=== PATIENT | male | born 1990 ===

== ENCOUNTER 2018-02-16 09:29 | Observation (INO) | payer OTHER ==
[2018-02-16 09:34] VITALS: BMI 29.8
--- NOTE | 2018-02-16 09:56 | C.PDOC ---
History Of Present Illness 27-year-old male presents to the ED for evaluation of left upper and lower sided abdominal pain which began at 1100 yesterday. Patient was evaluated by his PMD, and was prescribed ranitidine and omeprazole. Patient states he has been vomiting and has not been keeping anything down. He denies fever, chills, diarrhea. Time Seen by Provider: 02/16/18 09:53 Chief Complaint (Nursing): Abdominal Pain History Per: Patient History/Exam Limitations: no limitations Onset/Duration Of Symptoms: Hrs Current Symptoms Are (Timing): Still Present Location Of Pain/Discomfort: Other (left upper and lower abdominal pain ) Radiation Of Pain To:: None Quality Of Discomfort: "Pain" Associated Symptoms: Nausea, Vomiting. denies: Fever, Chills, Diarrhea Additional History Per: Patient Past Medical History Reviewed: Historical Data, Nursing Documentation, Vital Signs Vital Signs: Last Vital Signs Temp 98.5 F 02/18/18 08:00 Pulse 60 02/18/18 08:00 Resp 20 02/18/18 08:00 BP 117/77 02/18/18 08:00 Pulse Ox 96 02/18/18 09:28 - Medical History PMH: No Chronic Diseases Surgical History: No Surg Hx Family History: States: Unknown Family Hx - Social History Hx Alcohol Use: Yes Hx Substance Use: No Review Of Systems Constitutional: Negative for: Fever, Chills Cardiovascular: Negative for: Chest Pain Respiratory: Negative for: Cough, Shortness of Breath Gastrointestinal: Positive for: Nausea, Vomiting, Abdominal Pain. Negative for : Diarrhea Genitourinary: Negative for: Dysuria Skin: Negative for: Rash Neurological: Negative for: Weakness, Numbness Physical Exam - Physical Exam Appears: Non-toxic, No Acute Distress Skin: Normal Color, Warm, Dry Head: Atraumatic, Normacephalic Eye(s): bilateral: Normal Inspection Oral Mucosa: Moist Neck: Supple Chest: Symmetrical, No Deformity, No Tenderness Cardiovascular: Rhythm Regular, No Murmur Respiratory: Normal Breath Sounds, No Rales, No Rhonchi, No Wheezing Gastrointestinal/Abdominal: Soft, Tenderness (epigastric, left upper and left lower quadrants ), No Guarding, No Rebound, Other (vertical scar to abdomen ( patient states he had a surgery for "swollen abdomen" when he was 45-days old.) Extremity: Normal ROM, Capillary Refill (less than 2 seconds ) Neurological/Psych: Oriented x3, Normal Speech, Normal Cognition ED Course And Treatment - Laboratory Results Result Diagrams: 02/18/18 06:53 02/18/18 06:53 O2 Sat by Pulse Oximetry: 96 (on RA) Pulse Ox Interpretation: Normal Medical Decision Making Medical Decision Making: Progress: Bloodwork, urinalysis, CT A/P ordered and reviewed. Cipro IVP, Flagyl IVP, Pepcid IVP, Toradol IVP given. pt with elevated wbc and enteritis on ct scan; discussed with Dr Narayan, will admit to his service. Disposition Discussed With : Aiden Narayan Doctor Will See Patient In The: Hospital - Disposition Disposition: HOSPITALIZED Disposition Time: 16:30 Condition: STABLE - Clinical Impression Clinical Impression: Enteritis - PA / SUBSTANCE ABUSE SPECIALIST / Resident Statement MD/DO has reviewed & agrees with the documentation as recorded. - Scribe Statement The provider has reviewed the documentation as recorded by the Scribe (Shana Vega) All medical record entries made by the Scribe were at my direction and personally dictated by me. I have reviewed the chart and agree that the record accurately reflects my personal performance of the history, physical exam, medical decision making, and the department course for this patient. I have also personally directed, reviewed, and agree with the discharge instructions and disposition.
[2018-02-16] MEDS ORDERED: Iohexol 240 (50 ml) PO STA (12:38)
[2018-02-16] MEDS ORDERED: Iohexol 240 (50 ml) ONE (12:53)
[2018-02-16 13:00] LABS: BASO % 0.2 % (0.0-2.0); EOS % 0.2 % (0.0-4.0); HEMOGLOBIN 16.4 g/dL (12.0-18.0); LYMPH # 1.5 K/uL (1.0-4.3); LYMPH % 7.6 % (20.0-40.0); MEAN CELL VOLUME 87.7 fL (80.0-94.0); MEAN CORPUSCULAR HEMOGLOBIN 29.8 pg (27.0-31.0); MEAN PLATELET VOLUME 8.4 fL (7.2-11.7); MONO # 0.9 K/uL (0.0-0.8); MONO % 4.8 % (0.0-10.0); NEUT # 17.3 K/uL (1.8-7.0); NEUT % 87.2 % (50.0-75.0); PLATELET COUNT 263 K/uL (130-400); RED CELL DISTRIBUTION WIDTH 14.2 % (11.5-14.5)
[2018-02-16 13:02] LABS: WHITE BLOOD COUNT 19.8 K/uL (4.8-10.8)
[2018-02-16 13:05] LABS: URINE BILIRUBIN NEGATIVE (NEGATIVE); URINE BLOOD NEGATIVE (NEGATIVE); URINE CLARITY Hazy (Clear); URINE COLOR Amber (YELLOW); URINE GLUCOSE (UA) NORMAL (Normal); URINE LEUKOCYTE ESTERASE NEG Leu/uL (Negative); URINE PROTEIN 1+ mg/dL (NEGATIVE); URINE UROBILINOGEN NORMAL mg/dL (0.2-1.0)
[2018-02-16 13:12] LABS: ALB/GLOB RATIO 1.6 (1.0-2.1); ALBUMIN 4.5 g/dL (3.5-5.0); ALT/SGPT 38 U/L (21-72); AST/SGOT 28 U/L (17-59); BLOOD UREA NITROGEN 21 mg/dL (9-20); CALCIUM 9.6 mg/dl (8.6-10.4); GFR NON-AFRICAN AMERICAN > 60; LIPASE 94 U/L (23-300)
[2018-02-16 13:43] LABS: LYMPHOCYTE 10 % (20-40); MONOCYTE 3 % (0-10); NEUTROPHIL 87 % (50-75); PLATELET ESTIMATE NORMAL (NORMAL); TOTAL CELLS COUNTED 100
[2018-02-16] MEDS ORDERED: Iodixanol 320 MG/ML 100 ML BOTTLE IV ONE (13:54)
--- NOTE | 2018-02-16 15:49 | CT ---
PROCEDURE: CT Abdomen and Pelvis with oral and IV contrast. HISTORY: abd pain COMPARISON: None available TECHNIQUE: Contiguous axial images of the abdomen and pelvis. Oral and IV contrast was administered. Coronal and Sagittal reformats generated and reviewed. Contrast dose: 100 mL Visipaque IV Radiation dose: Total exam DLP = 715.20 mGy-cm. This CT exam was performed using one or more of the following dose reduction techniques: Automated exposure control, adjustment of the mA and/or kV according to patient size, and/or use of iterative reconstruction technique. FINDINGS: LOWER THORAX: No visible consolidation, pleural effusion, or pneumothorax. LIVER: Unremarkable. GALLBLADDER AND BILE DUCTS: Unremarkable. PANCREAS: Unremarkable. SPLEEN: Unremarkable. ADRENALS: Unremarkable. KIDNEYS AND URETERS: The kidneys enhance symmetrically. No hydronephrosis or obstructing renal calculus. BLADDER: The urinary bladder appears unremarkable. REPRODUCTIVE: Unremarkable. APPENDIX: No secondary signs of acute appendicitis. BOWEL: The stomach is nondistended. The bowel loops appear within normal limits of caliber without evidence of intestinal obstruction.Marked small bowel wall thickening within the left abdomen concerning for enteritis. Rounded luminal material noted within a small bowel loop with hyperdense rim, possibly contrast surrounding debris, however finding of uncertain significance/etiology (coronal image 48, axial image 96). PERITONEUM: No significant free fluid. No definite free air. LYMPH NODES: No bulky lymphadenopathy identified. VASCULATURE: No aortic aneurysm. BONES: No acute osseous abnormality is detected. OTHER FINDINGS: None. IMPRESSION: Marked small bowel wall thickening within the left abdomen concerning for enteritis. Correlate clinically. Rounded luminal material noted within a small bowel loop with hyperdense rim, possibly contrast surrounding debris, however finding of uncertain significance/etiology.
[2018-02-16] MEDS ORDERED: Piperacillin/Tazobact 3.375 GM in Sodium Chloride 100 ML IVPB STA (16:05)
[2018-02-16] MEDS ORDERED: Piperacillin/Tazobact 3.375 gm 100 ML IVPB ONE (16:18)
[2018-02-16] MEDS ORDERED: Ciprofloxacin 400mg/200ml D5W 400 MG/200 ML BAG IVPB STA (16:22)
[2018-02-16] MEDS ORDERED: metroNIDAZOLE IV 500 mg/100 ml 500 MG/100 ML BAG IVPB STA (16:25)
[2018-02-16] MEDS ORDERED: Glucagon Recombinant 1 mg Inj IM PRN (16:41)
[2018-02-16] MEDS ORDERED: Dextrose 50% SYRINGE Inj (50 ml) IV PRN (16:41)
[2018-02-16] MEDS ORDERED: metroNIDAZOLE IV 500 mg/100 ml 500 MG/100 ML BAG ONE (16:43)
--- NOTE | 2018-02-16 16:43 | CP.PCM.HP ---
<BhaveshLive finney - Last Filed: 02/16/18 17:19> History of Present Illness - History of Present Illness History of Present Illness: PGY-[address] and [address] Narayan Patient is a 27 year old male with a PMH of an unknown abdominal surgery at 1 month of age who presents to the ED reporting that yesterday at 11 am he had onset of pressure like left lower abdominal pain. After eating rice and pork for lunch his pain markedly worsened; he rates it 10/10 in intensity. Around 1 am he had onset of non-bloody non-bilious yellow vomiting that persisted x 5 episodes. Throughout the day today his abdominal pain did not remit promiting his visit. He notes that when he pushes on his left lower abdomen the pain is sharp and radiates to his epigastrium and down to his umbilicus. He has not been able to tolerate fluids or food since his lunch yesterday. He was seen by his PMD in the office last night for this pain and started on Omeprazole and an unknown medication without relief. He states that since being in the ED and receiving medications, his pain has subsided to 6/10 and he is currently not nauseas. He denies fevers, chills, chest pain, palpitations, diarrhea, constipation, blood in his urine, blood in his stool or changes in his vision. He notes he was dizzy after the multiple episodes of vomiting but it has currently resolved. PMD: Dr. Richmond Vieira Medications: None Allergies: NKDA PMHx: None Surgeries: History of unknown abdominal surgery at age 1 month Social hx: Denies smoking, drug use, drinks small amount socially Family history: No known family history Present on Admission - Present on Admission Any Indicators Present on Admission: No Review of Systems - Constitutional Constitutional: Fatigue. absent: Chills, Fever, Increased Appetite, Weight Loss - EENT Eyes: absent: Blurred Vision, Change in Vision Ears: absent: Abnormal Hearing, Disequilibrium Nose/Mouth/Throat: absent: Nasal Congestion, Nasal Discharge, Sinus Pain - Cardiovascular Cardiovascular: absent: Chest Pain, Diaphoresis, Dyspnea, Lightheadedness, Pedal Edema - Respiratory Respiratory: absent: Cough, Dyspnea, Wheezing - Gastrointestinal Gastrointestinal: Abdominal Pain (+LLQ pain), Nausea, Vomiting (+NBNB vomiting x5 bouts). absent: Diarrhea, Dysphagia, Fecal Incontinence, Loose Stools - Genitourinary Genitourinary: absent: Change in Urinary Stream, Hematuria, Pyuria - Musculoskeletal Musculoskeletal: absent: Back Pain, Joint Swelling, Neck Pain - Neurological Neurological: absent: Confusion, Dizziness, Numbness, Headaches, Paresthesias, Syncope, Weakness - Psychiatric Psychiatric: absent: Anxiety, Depression Past Patient History - Past Social History Smoking Status: Current Some Days Smoker - PSYCHIATRIC Hx Substance Use: No - SURGICAL HISTORY Hx Surgeries: Yes Other/Comment: "SURGERY IN MY STOMACH WHEN I WAS 45 DAYS OLD" PER PATIENT - ANESTHESIA Hx Anesthesia: Yes Meds Allergies/Adverse Reactions: Allergies Allergy/AdvReac Type Severity Reaction Status Date / Time No Known Allergies Allergy Verified 02/16/18 09:33 Physical Exam - Constitutional Appears: Non-toxic, No Acute Distress - Head Exam Head Exam: ATRAUMATIC, NORMAL INSPECTION - Eye Exam Eye Exam: EOMI, Normal appearance Pupil Exam: NORMAL ACCOMODATION - ENT Exam ENT Exam: Mucous Membranes Moist, Normal Exam - Respiratory Exam Respiratory Exam: Clear to Auscultation Bilateral, NORMAL BREATHING PATTERN. absent: Rales, Rhonchi, Wheezes - Cardiovascular Exam Cardiovascular Exam: REGULAR RHYTHM, +S1, +S2 - GI/Abdominal Exam GI & Abdominal Exam: Normal Bowel Sounds, Soft, Tenderness (+LLQ tender to mild palpation, no rebound, no gaurding). absent: Distended, Firm, Guarding, Hyperactive Bowel Sounds, Hypoactive Bowel Sounds, Organomegaly, Rebound, Rigid - Neurological Exam Neurological exam: Alert, CN II-XII Intact, Normal Gait, Oriented x3, Reflexes Normal - Psychiatric Exam Psychiatric exam: Normal Affect, Normal Mood - Skin Skin Exam: Dry, Intact, Normal Color, Warm Results - Vital Signs Recent Vital Signs: Last Vital Signs Temp 98.2 F 02/16/18 15:09 Pulse 72 02/16/18 15:09 Resp 18 02/16/18 15:09 BP 112/75 02/16/18 15:09 Pulse Ox 96 02/16/18 16:28 - Labs Result Diagrams: 02/16/18 12:54 02/16/18 12:54 Labs: Laboratory Results - last 24 hr 02/16/18 02/16/18 02/16/18 12:54 12:54 12:54 WBC 19.8 H RBC 5.50 Hgb 16.4 Hct 48.2 MCV 87.7 MCH 29.8 MCHC 34.0 RDW 14.2 Plt Count 263 MPV 8.4 Neut % (Auto) 87.2 H Lymph % (Auto) 7.6 L Garrett % (Auto) 4.8 Eos % (Auto) 0.2 Baso % (Auto) 0.2 Neut # (Auto) 17.3 H Lymph # (Auto) 1.5 Garrett # (Auto) 0.9 H Eos # (Auto) 0.0 Baso # (Auto) 0.0 Neutrophils % (Manual) 87 H Lymphocytes % (Manual) 10 L Monocytes % (Manual) 3 Platelet Estimate Normal Sodium 141 Potassium 4.1 Chloride 103 Carbon Dioxide 28 Anion Gap 14 BUN 21 H Creatinine 0.9 Est GFR ( Amer) > 60 Est GFR (Non-Af Amer) > 60 Random Glucose 117 H Calcium 9.6 Total Bilirubin 1.5 H AST 28 ALT 38 Alkaline Phosphatase 80 Total Protein 7.3 Albumin 4.5 Globulin 2.9 Albumin/Globulin Ratio 1.6 Lipase 94 Urine Color Noelle Urine Clarity Hazy Urine pH 6.0 Ur Specific [place] 1.023 Urine Protein 1+ H Urine Glucose (UA) Normal Urine Ketones Negative Urine Blood Negative Urine Nitrate Negative Urine Bilirubin Negative Urine Urobilinogen Normal Ur Leukocyte Esterase Neg Urine WBC (Auto) 1 Urine RBC (Auto) 1 Assessment & Plan - Assessment and Plan (Free Text) Assessment: 1) Left lower quadrant pain with leukocytosis: * Imaging: * CT abd/pelvis: "Marked small bowel wall thickening within the left abdomen concerning for enteritis, Correlate clinically. Rounded luminal material noted within a small bowel loop with hyperdense rim, possibly contrast surrounding debris, however finding of uncertain significance/etiology." * Leukocytes- 19.8 * Lipase 94 (WNL) * Daily CBC w/ dif, CMP, lipase, mag, phos * NPO except meds for bowel rest * D5 Dextrose @150cc/hr * Continue ED Abx: * Cipro 400 mg IVPD q12 * Flagyl 500 mg IVPB q8 * PRN Meds * Morphine 2mg IVP q3 PRN for pain * Tylenol 650 mg PO prn for fever 2) Prophylaxis * DVT: SCDs Assessment/Plan discussed with Dr. Helene Flores, PGY-1 <Aiden Narayan H - Last Filed: 02/16/18 18:28> Results - Vital Signs Recent Vital Signs: Last Vital Signs Temp 99.9 F H 02/16/18 18:13 Pulse 62 02/16/18 18:13 Resp 16 02/16/18 18:13 BP 100/63 02/16/18 18:13 Pulse Ox 98 02/16/18 18:13 - Labs Result Diagrams: 02/16/18 12:54 02/16/18 12:54 Labs: Laboratory Results - last 24 hr 02/16/18 02/16/18 02/16/18 12:54 12:54 12:54 WBC 19.8 H RBC 5.50 Hgb 16.4 Hct 48.2 MCV 87.7 MCH 29.8 MCHC 34.0 RDW 14.2 Plt Count 263 MPV 8.4 Neut % (Auto) 87.2 H Lymph % (Auto) 7.6 L Garrett % (Auto) 4.8 Eos % (Auto) 0.2 Baso % (Auto) 0.2 Neut # (Auto) 17.3 H Lymph # (Auto) 1.5 Garrett # (Auto) 0.9 H Eos # (Auto) 0.0 Baso # (Auto) 0.0 Neutrophils % (Manual) 87 H Lymphocytes % (Manual) 10 L Monocytes % (Manual) 3 Platelet Estimate Normal Sodium 141 Potassium 4.1 Chloride 103 Carbon Dioxide 28 Anion Gap 14 BUN 21 H Creatinine 0.9 Est GFR ( Amer) > 60 Est GFR (Non-Af Amer) > 60 Random Glucose 117 H Calcium 9.6 Total Bilirubin 1.5 H AST 28 ALT 38 Alkaline Phosphatase 80 Total Protein 7.3 Albumin 4.5 Globulin 2.9 Albumin/Globulin Ratio 1.6 Lipase 94 Urine Color Noelle Urine Clarity Hazy Urine pH 6.0 Ur Specific [place] 1.023 Urine Protein 1+ H Urine Glucose (UA) Normal Urine Ketones Negative Urine Blood Negative Urine Nitrate Negative Urine Bilirubin Negative Urine Urobilinogen Normal Ur Leukocyte Esterase Neg Urine WBC (Auto) 1 Urine RBC (Auto) 1 Attending/Attestation - Attestation I have personally seen and examined this patient.: Yes I have fully participated in the care of the patient.: Yes I have reviewed all pertinent clinical information: Yes Notes (Text): 02/16/18 18:28 Medical attending: Patient was seen and examined by me, reviewed the above note by the medical sociologist and agree with the above note. This is a very nice 27-year-old male who as reported above in the medical residents note comes to us with left lower quadrant abdominal pain. He has a history of some sort of abdominal surgery he says when he was very very young and in his childhood and he is not entirely sure what it was for. CT scan was done emergency room which suggested that he has and thickened bowel wall concerning for either colitis/enteritis. It may be that he ate some type of undercooked food or poorly prepared foods over the Day weekend. Regardless we will place the patient on intravenous fluids, IV Cipro, IV Flagyl Because of the elevated white blood cell count, were to check blood cultures as well. He denies having any fevers or chills. On exam he does have tenderness over the left lower quadrant, however there is no guarding and no rebound. Thank you very much, Aiden Narayan
[2018-02-16] MEDS ORDERED: Dextrose 5%/0.9% NS 1,000 ML IV SCH (16:45)
[2018-02-16] MEDS ORDERED: Ciprofloxacin 400mg/200ml D5W 400 MG/200 ML BAG IVPB ONE (17:35)
[2018-02-16] MEDS: Dextrose 5%/0.9% NS 1,000 ML IV SCH (19:35)
[2018-02-17 01:55] VITALS: RESP 20
[2018-02-17] MEDS: metroNIDAZOLE IV 500 mg/100 ml 500 MG/100 ML BAG IVPB SCH ×3 (02:10→17:11)
[2018-02-17] MEDS: Dextrose 5%/0.9% NS 1,000 ML IV SCH ×4 (02:11→22:16)
[2018-02-17] MEDS: Ciprofloxacin 400mg/200ml D5W 400 MG/200 ML BAG IVPB SCH ×2 (05:24→18:18)
[2018-02-17 08:59] LABS: BASO % 0.4 % (0.0-2.0); EOS # 0.3 K/uL (0.0-0.7); EOS % 3.2 % (0.0-4.0); LYMPH # 1.5 K/uL (1.0-4.3); LYMPH % 19.6 % (20.0-40.0); MEAN CELL VOLUME 87.6 fL (80.0-94.0); MEAN CORPUSCULAR HEMOGLOBIN 30.1 pg (27.0-31.0); MEAN CORPUSCULAR HGB CONC 34.4 g/dL (33.0-37.0); MEAN PLATELET VOLUME 8.2 fL (7.2-11.7); MONO # 0.7 K/uL (0.0-0.8); NEUT # 5.3 K/uL (1.8-7.0); NEUT % 67.8 % (50.0-75.0); RBC 4.68 Mil/uL (4.40-5.90); RED CELL DISTRIBUTION WIDTH 14.3 % (11.5-14.5)
[2018-02-17 09:02] LABS: WHITE BLOOD COUNT 7.9 K/uL (4.8-10.8)
[2018-02-17 09:03] LABS: HEMOGLOBIN 14.1 g/dL (12.0-18.0)
[2018-02-17 09:16] LABS: ALB/GLOB RATIO 1.3 (1.0-2.1); ALBUMIN 3.3 g/dL (3.5-5.0); ALT/SGPT 49 U/L (21-72); AST/SGOT 26 U/L (17-59); BLOOD UREA NITROGEN 22 mg/dL (9-20); CALCIUM 8.4 mg/dl (8.6-10.4); GFR NON-AFRICAN AMERICAN > 60
[2018-02-17] MEDS: Saccharomyces Boulardi 250 mg Cap PO SCH ×2 (14:11→22:05)
--- NOTE | 2018-02-17 14:34 | CP.PCM.PN ---
<Live Flores - Last Filed: 02/17/18 14:23> Subjective - Date & Time of Evaluation Date of Evaluation: 02/17/18 Time of Evaluation: 14:25 - Subjective Subjective: PGY-[address] Narayan Patient seen and examined at bedside. No acute events overnight. Patient was being kept NPO, we have advanced his diet today to a full liquid diet. Patient has not had any fevers or chills. He is still having abdominal pain, nausea, and vomiting. He had one episode of nonbloody nonbilious emesis last night. His abdominal pain has improved since yesterday, though patient still complaining of LLQ pain. Patient had a normal bowel movement yesterday with diarrhea or blood in the stool. Patient denies headache, chest pain, dizziness , shortness of breath. Objective - Vital Signs/Intake and Output Vital Signs (last 24 hours): Temp Pulse Resp BP Pulse Ox 97.6 F 62 20 109/66 95 02/17/18 07:47 02/17/18 07:47 02/17/18 07:47 02/17/18 07:47 02/17/18 13:20 Intake and Output: 02/17/18 02/17/18 06:59 18:59 Intake Total 900 800 Balance 900 800 - Medications Medications: Current Medications Acetaminophen (Tylenol 325mg Tab) 650 mg PO Q6 PRN PRN Reason: Fever >100.4 F Dextrose (Dextrose 50% Inj) 0 ml IV STAT PRN; Protocol PRN Reason: Hypoglycemia Protocol Dextrose (Glutose 15) 0 gm PO ONCE PRN; Protocol PRN Reason: Hypoglycemia Protocol Glucagon (Glucagen Diagnostic Kit) 0 mg IM STAT PRN; Protocol PRN Reason: Hypoglycemia Protocol Ciprofloxacin (Cipro 400mg/200ml Dsw) 400 mg in 200 mls @ 133 mls/hr IVPB Q12H PING PRN Reason: Protocol Last Admin: 02/17/18 05:24 Dose: 133 mls/hr Metronidazole (Flagyl) 500 mg in 100 mls @ 100 mls/hr IVPB Q8H PING PRN Reason: Protocol Last Admin: 02/17/18 08:53 Dose: 100 mls/hr Dextrose (Dextrose 5% In Water 1000 Ml) 1,000 mls @ 0 mls/hr IV .Q0M PRN; Protocol; Per Protocol PRN Reason: Hypoglycemia Protocol Dextrose/Sodium Chloride (Dextrose 5%/0.9% Ns 1000 Ml) 1,000 mls @ 150 mls/hr IV .Q6H40M [facility] Last Admin: 02/17/18 13:20 Dose: 150 mls/hr Morphine Sulfate (Morphine) 2 mg IVP Q3 PRN PRN Reason: Pain, moderate (4-7) Ondansetron HCl (Zofran Inj) 4 mg IVP Q6 PRN PRN Reason: Nausea/Vomiting Pneumococcal Polyvalent Vaccine (Pneumovax 23 Vaccine) 0.5 ml IM .ONCE ONE Stop: 02/19/18 10:01 Saccharomyces Boulardii (Florastor) 250 mg PO Q12 [facility] Last Admin: 02/17/18 14:11 Dose: 250 mg - Labs Labs: 02/17/18 08:41 02/17/18 08:41 - Head Exam Head Exam: ATRAUMATIC, NORMAL INSPECTION - Eye Exam Eye Exam: EOMI, Normal appearance - ENT Exam ENT Exam: Mucous Membranes Moist, Normal Exam - Respiratory Exam Respiratory Exam: Clear to Ausculation Bilateral, NORMAL BREATHING PATTERN - Cardiovascular Exam Cardiovascular Exam: REGULAR RHYTHM, +S1, +S2. absent: Rubs - GI/Abdominal Exam GI & Abdominal Exam: Soft, Tenderness (+LLQ pain to moderate palpation), Normal Bowel Sounds. absent: Firm, Guarding, Diminished Bowel Sounds, Hernia, Hypoactive Bowel Sounds, Mass - Extremities Exam Extremities Exam: Full ROM, Normal Inspection - Neurological Exam Neurological Exam: Alert, Awake, CN II-XII Intact, Normal Gait, Oriented x3. absent: Altered, Motor Sensory Deficit Neuro motor strength exam: Left Upper Extremity: 5, Right Upper Extremity: 5, Left Lower Extremity: 5, Right Lower Extremity: 5 - Psychiatric Exam Psychiatric exam: Normal Affect, Normal Mood - Skin Skin Exam: Dry, Intact, Normal Color, Warm Assessment and Plan - Assessment and Plan (Free Text) Assessment: 1) Left lower quadrant pain with leukocytosis: * Imaging: * CT abd/pelvis: "Marked small bowel wall thickening within the left abdomen concerning for enteritis, Correlate clinically. Rounded luminal material noted within a small bowel loop with hyperdense rim, possibly contrast surrounding debris, however finding of uncertain significance/etiology." * Leukocytes- White count has resolved - 19.8 --> 7.9 today * Lipase 94 (WNL) * Daily CBC w/ dif, CMP, lipase, mag, phos * Diet advanced to full liquid diet. Will reassess how patient is tolerating liquids tomorrow. * D5 Dextrose @150cc/hr * Continue ED Abx: * Cipro 400 mg IVPD q12 * Flagyl 500 mg IVPB q8 * PRN Meds * Morphine 2mg IVP q3 PRN for pain * Tylenol 650 mg PO prn for fever 2) Prophylaxis * DVT: SCDs Assessment/Plan discussed with Dr. Helene Flores, PGY-1 <Aiden Narayan H - Last Filed: 02/17/18 16:52> Objective - Vital Signs/Intake and Output Vital Signs (last 24 hours): Temp Pulse Resp BP Pulse Ox 97.6 F 62 20 109/66 95 02/17/18 07:47 02/17/18 07:47 02/17/18 07:47 02/17/18 07:47 02/17/18 13:20 Intake and Output: 02/17/18 02/17/18 06:59 18:59 Intake Total 900 800 Balance 900 800 - Medications Medications: Current Medications Acetaminophen (Tylenol 325mg Tab) 650 mg PO Q6 PRN PRN Reason: Fever >100.4 F Dextrose (Dextrose 50% Inj) 0 ml IV STAT PRN; Protocol PRN Reason: Hypoglycemia Protocol Dextrose (Glutose 15) 0 gm PO ONCE PRN; Protocol PRN Reason: Hypoglycemia Protocol Glucagon (Glucagen Diagnostic Kit) 0 mg IM STAT PRN; Protocol PRN Reason: Hypoglycemia Protocol Ciprofloxacin (Cipro 400mg/200ml Dsw) 400 mg in 200 mls @ 133 mls/hr IVPB Q12H PING PRN Reason: Protocol Last Admin: 02/17/18 05:24 Dose: 133 mls/hr Metronidazole (Flagyl) 500 mg in 100 mls @ 100 mls/hr IVPB Q8H PING PRN Reason: Protocol Last Admin: 02/17/18 08:53 Dose: 100 mls/hr Dextrose (Dextrose 5% In Water 1000 Ml) 1,000 mls @ 0 mls/hr IV .Q0M PRN; Protocol; Per Protocol PRN Reason: Hypoglycemia Protocol Dextrose/Sodium Chloride (Dextrose 5%/0.9% Ns 1000 Ml) 1,000 mls @ 150 mls/hr IV .Q6H40M [facility] Last Admin: 02/17/18 13:20 Dose: 150 mls/hr Morphine Sulfate (Morphine) 2 mg IVP Q3 PRN PRN Reason: Pain, moderate (4-7) Ondansetron HCl (Zofran Inj) 4 mg IVP Q6 PRN PRN Reason: Nausea/Vomiting Pneumococcal Polyvalent Vaccine (Pneumovax 23 Vaccine) 0.5 ml IM .ONCE ONE Stop: 02/19/18 10:01 Saccharomyces Boulardii (Florastor) 250 mg PO Q12 [facility] Last Admin: 02/17/18 14:11 Dose: 250 mg - Labs Labs: 02/17/18 08:41 02/17/18 08:41 Attending/Attestation - Attestation I have personally seen and examined this patient.: Yes I have fully participated in the care of the patient.: Yes I have reviewed all pertinent clinical information, including history, physical exam and plan: Yes Notes (Text): 02/17/18 16:52 Medical attending: Patient was seen and examined by me, agrees the above note by the medical technologist microbiology. The patient was seen with the medical residents. He had a family member present in the room, the patient was okay with this. With regards to his enteritis/colitis - he reported that he felt more comfortable today there was less abdominal pain. Rinne try advancing his diet to full liquid. He denies fevers and chills. Review of his lab work shows that the white blood cell Has decreased from 19 down to 7.9. Regarding continue with IV Cipro and IV Flagyl at this time. Were still pending on the blood cultures Thank you very much, Aiden Narayan
[2018-02-18] MEDS: metroNIDAZOLE IV 500 mg/100 ml 500 MG/100 ML BAG IVPB SCH ×3 (00:48→17:55)
[2018-02-18] MEDS: Dextrose 5%/0.9% NS 1,000 ML IV SCH ×4 (03:00→18:28)
[2018-02-18] MEDS: Ciprofloxacin 400mg/200ml D5W 400 MG/200 ML BAG IVPB SCH ×2 (05:28→18:29)
[2018-02-18 07:03] LABS: BASO % 0.4 % (0.0-2.0); EOS # 0.3 K/uL (0.0-0.7); HEMOGLOBIN 13.9 g/dL (12.0-18.0); LYMPH # 1.8 K/uL (1.0-4.3); LYMPH % 25.2 % (20.0-40.0); MEAN CELL VOLUME 87.5 fL (80.0-94.0); MEAN CORPUSCULAR HEMOGLOBIN 30.5 pg (27.0-31.0); MEAN CORPUSCULAR HGB CONC 34.8 g/dL (33.0-37.0); MONO # 0.7 K/uL (0.0-0.8); MONO % 10.2 % (0.0-10.0); NEUT # 4.4 K/uL (1.8-7.0); NEUT % 60.2 % (50.0-75.0); RBC 4.54 Mil/uL (4.40-5.90); WHITE BLOOD COUNT 7.3 K/uL (4.8-10.8)
[2018-02-18 07:36] LABS: ALB/GLOB RATIO 1.4 (1.0-2.1); ALBUMIN 3.3 g/dL (3.5-5.0); ALT/SGPT 52 U/L (21-72); AST/SGOT 30 U/L (17-59); BLOOD UREA NITROGEN 11 mg/dL (9-20); CALCIUM 8.4 mg/dl (8.6-10.4); GFR NON-AFRICAN AMERICAN > 60
[2018-02-18] MEDS: Saccharomyces Boulardi 250 mg Cap PO SCH (09:56)
--- NOTE | 2018-02-18 10:07 | CP.PCM.DIS ---
<Live Flores - Last Filed: 02/18/18 18:08> Provider - Provider Date of Admission: 02/16/18 16:25 Attending physician: Aiden Narayan DO Time Spent in preparation of Discharge (in minutes): 45 Diagnosis - Discharge Diagnosis (1) Enteritis Status: Acute Hospital Course - Lab Results Lab Results: Micro Results 02/16/18 19:30 Blood-Venous Blood Culture - Preliminary NO GROWTH AFTER 24 HOURS 02/16/18 20:00 Blood-Venous Blood Culture - Preliminary NO GROWTH AFTER 24 HOURS 02/16/18 20:21 Urine,Clean Catch Urine Culture - Final No Growth (<1,000 CFU/ML) Most Recent Lab Values WBC 7.3 K/uL (4.8-10.8) 02/18/18 06:53 RBC 4.54 Mil/uL (4.40-5.90) 02/18/18 06:53 Hgb 13.9 g/dL (12.0-18.0) 02/18/18 06:53 Hct 39.8 % (35.0-51.0) 02/18/18 06:53 MCV 87.5 fL (80.0-94.0) 02/18/18 06:53 MCH 30.5 pg (27.0-31.0) 02/18/18 06:53 MCHC 34.8 g/dL (33.0-37.0) 02/18/18 06:53 RDW 14.0 % (11.5-14.5) 02/18/18 06:53 Plt Count 214 K/uL (130-400) 02/18/18 06:53 MPV 8.0 fL (7.2-11.7) 02/18/18 06:53 Neut % (Auto) 60.2 % (50.0-75.0) 02/18/18 06:53 Lymph % (Auto) 25.2 % (20.0-40.0) 02/18/18 06:53 Gibson % (Auto) 10.2 % (0.0-10.0) H 02/18/18 06:53 Eos % (Auto) 4.0 % (0.0-4.0) 02/18/18 06:53 Baso % (Auto) 0.4 % (0.0-2.0) 02/18/18 06:53 Neut # (Auto) 4.4 K/uL (1.8-7.0) 02/18/18 06:53 Lymph # (Auto) 1.8 K/uL (1.0-4.3) 02/18/18 06:53 Gibson # (Auto) 0.7 K/uL (0.0-0.8) 02/18/18 06:53 Eos # (Auto) 0.3 K/uL (0.0-0.7) 02/18/18 06:53 Baso # (Auto) 0.0 K/uL (0.0-0.2) 02/18/18 06:53 Neutrophils % (Manual) 87 % (50-75) H 02/16/18 12:54 Lymphocytes % (Manual) 10 % (20-40) L 02/16/18 12:54 Monocytes % (Manual) 3 % (0-10) 02/16/18 12:54 Platelet Estimate Normal (NORMAL) 02/16/18 12:54 Sodium 140 mmol/L (132-148) 02/18/18 06:53 Potassium 3.5 mmol/L (3.6-5.2) L 02/18/18 06:53 Chloride 104 mmol/L (98-107) 02/18/18 06:53 Carbon Dioxide 28 mmol/L (22-30) 02/18/18 06:53 Anion Gap 11 (10-20) 02/18/18 06:53 BUN 11 mg/dL (9-20) 02/18/18 06:53 Creatinine 0.8 mg/dL (0.8-1.5) 02/18/18 06:53 Est GFR ( Amer) > 60 02/18/18 06:53 Est GFR (Non-Af Amer) > 60 02/18/18 06:53 POC Glucose (mg/dL) 105 mg/dL (65-110) 02/18/18 02:14 Random Glucose 89 mg/dL (75-110) 02/18/18 06:53 Calcium 8.4 mg/dl (8.6-10.4) L 02/18/18 06:53 Phosphorus 3.5 mg/dL (2.5-4.5) 02/18/18 06:53 Magnesium 2.0 mg/dL (1.6-2.3) 02/18/18 06:53 Total Bilirubin 0.8 mg/dL (0.2-1.3) 02/18/18 06:53 AST 30 U/L (17-59) 02/18/18 06:53 ALT 52 U/L (21-72) 02/18/18 06:53 Alkaline Phosphatase 56 U/L (38-126) 02/18/18 06:53 Total Protein 5.8 g/dL (6.3-8.3) L 02/18/18 06:53 Albumin 3.3 g/dL (3.5-5.0) L 02/18/18 06:53 Globulin 2.4 gm/dL (2.2-3.9) 02/18/18 06:53 Albumin/Globulin Ratio 1.4 (1.0-2.1) 02/18/18 06:53 Lipase 94 U/L (23-300) 02/16/18 12:54 Urine Color [place] (YELLOW) 02/16/18 12:54 Urine Clarity Hazy (Clear) 02/16/18 12:54 Urine pH 6.0 (5.0-8.0) 02/16/18 12:54 Ur Specific [place] 1.023 (1.003-1.030) 02/16/18 12:54 Urine Protein 1+ mg/dL (NEGATIVE) H 02/16/18 12:54 Urine Glucose (UA) Normal mg/dL (Normal) 02/16/18 12:54 Urine Ketones Negative mg/dL (NEGATIVE) 02/16/18 12:54 Urine Blood Negative (NEGATIVE) 02/16/18 12:54 Urine Nitrate Negative (NEGATIVE) 02/16/18 12:54 Urine Bilirubin Negative (NEGATIVE) 02/16/18 12:54 Urine Urobilinogen Normal mg/dL (0.2-1.0) 02/16/18 12:54 Ur Leukocyte Esterase Neg Becka/uL (Negative) 02/16/18 12:54 Urine WBC (Auto) 1 /hpf (0-5) 02/16/18 12:54 Urine RBC (Auto) 1 /hpf (0-3) 02/16/18 12:54 - Hospital Course Hospital Course: PGY-[address] Vega HPI: Patient is a 27 year old male with a PMH of an unknown abdominal surgery at 1 month of age who presents to the ED reporting that yesterday at 11 am he had onset of pressure like left lower abdominal pain. After eating rice and pork for lunch his pain markedly worsened; he rates it 10/10 in intensity. Around 1 am he had onset of non-bloody non-bilious yellow vomiting that persisted x 5 episodes. Throughout the day today his abdominal pain did not remit promiting his visit. He notes that when he pushes on his left lower abdomen the pain is sharp and radiates to his epigastrium and down to his umbilicus. He has not been able to tolerate fluids or food since his lunch yesterday. He was seen by his PMD in the office last night for this pain and started on Omeprazole and an unknown medication without relief. He states that since being in the ED and receiving medications, his pain has subsided to 6/10 and he is currently not nauseas. He denies fevers, chills, chest pain, palpitations, diarrhea, constipation, blood in his urine, blood in his stool or changes in his vision. He notes he was dizzy after the multiple episodes of vomiting but it has currently resolved. Hospital Course: Patient presented with left lower quadrant pain with leukocytosis. He had not eaten anything for over 24 hours due to nausea and vomiting. He remained afebrile through the duration of his hospital course. - Imaging: - CT abdomen/pelvis (02/16/2018) : Marked small bowel wall thickening within the left abdomen concerning for enteritis. Rounded luminal material noted within a small bowel loop with hyperdense rim, possible contrast surrounding debris, however finding of uncertain significance/etiology - Leukocytes: 19.8 --> 7.9 --> 7.3 (today) - Lipase 94 (02/16/2018) - Repeat CBC with diff, lipase, mg and phos daily Patient started hospital course NPO. He tolerated clear liquid diet without incident on 02/17/2018; Diet was advanced to regular full diet which patient also tolerated well Patient was hydrated with IV Fluids - D5 Dextrose @ 150 cc/hr - discontinued - Antibiotics (Start date 02/16/2018): -Ciprofloxacin 400 mg IVPD q12h -Flagyl 500 mg IVPB q8h Patient was treated for pain with PRN tylenol and morphine. Final blood and urine cultures were negative (02/16), and patient was cleared for discharge home -Urine culture (02/16/2018) reviewed - no growth seen -Blood cultures (02/16/2018) reviewed at 24 hours - no growth seen Plan: Patient has been cleared for discharge by Dr. Narayan. Please return to ER if symptoms reoccur or worsen. You have been provided with some new medications to take for the next 10 days as follows: -Ciprofloxacin 500 mg 1 tab by mouth every 12 hours and 8am and 8pm -Metronidazole 500 mg by mouth every twice per day at 8am and 8pm Please follow up with your primary care doctor, Dr. Richmond Vieira in the next 7 -10 days. Discharge Exam - Head Exam Head Exam: ATRAUMATIC, NORMAL INSPECTION - Eye Exam Eye Exam: EOMI, Normal appearance Pupil Exam: NORMAL ACCOMODATION - Respiratory Exam Respiratory Exam: NORMAL BREATHING PATTERN, UNREMARKABLE - Cardiovascular Exam Cardiovascular Exam: REGULAR RHYTHM, +S1, +S2 - GI/Abdominal Exam GI & Abdominal Exam: Normal Bowel Sounds, Unremarkable. absent: Distended, Firm , Guarding - Extremities Exam Extremities exam: pedal pulses present Additional comments: abdominal pain resolved - Neurological Exam Neurological exam: Alert, CN II-XII Intact, Oriented x3 - Psychiatric Exam Psychiatric exam: Normal Affect, Normal Mood - Skin Skin Exam: Dry, Intact, Normal Color, Warm Discharge Plan - Discharge Medications Prescriptions: Ciprofloxacin [Cipro] 500 mg PO BID #16 tab Metronidazole [Flagyl] 500 mg PO TID #24 tablet - Follow Up Plan Condition: STABLE Disposition: HOME/ ROUTINE Instructions: Diarrhea in Adolescents and Adults Additional Instructions: Patient has been cleared for discharge by Dr. Narayan. Please return to ER if symptoms reoccur or worsen. You have been provided with some new medications to take for the next 10 days as follows: -Ciprofloxacin 500 mg 1 tab by mouth every 12 hours and 8am and 8pm -Metronidazole 500 mg by mouth every twice per day at 8am and 8pm Please follow up with your primary care doctor, Dr. Richmond Vieira in the next 7 -10 days. Referrals: Richmond Vieira MD [Staff Provider] - <Aiden Narayan - Last Filed: 02/19/18 07:57> Provider - Provider Date of Admission: 02/16/18 16:25 Attending physician: Aiden Narayan, DO Hospital Course - Lab Results Lab Results: Micro Results 02/16/18 19:30 Blood-Venous Blood Culture - Preliminary NO GROWTH AFTER 48 HOURS 02/16/18 20:00 Blood-Venous Blood Culture - Preliminary NO GROWTH AFTER 48 HOURS 02/16/18 20:21 Urine,Clean Catch Urine Culture - Final No Growth (<1,000 CFU/ML) Most Recent Lab Values WBC 7.3 K/uL (4.8-10.8) 02/18/18 06:53 RBC 4.54 Mil/uL (4.40-5.90) 02/18/18 06:53 Hgb 13.9 g/dL (12.0-18.0) 02/18/18 06:53 Hct 39.8 % (35.0-51.0) 02/18/18 06:53 MCV 87.5 fL (80.0-94.0) 02/18/18 06:53 MCH 30.5 pg (27.0-31.0) 02/18/18 06:53 MCHC 34.8 g/dL (33.0-37.0) 02/18/18 06:53 RDW 14.0 % (11.5-14.5) 02/18/18 06:53 Plt Count 214 K/uL (130-400) 02/18/18 06:53 MPV 8.0 fL (7.2-11.7) 02/18/18 06:53 Neut % (Auto) 60.2 % (50.0-75.0) 02/18/18 06:53 Lymph % (Auto) 25.2 % (20.0-40.0) 02/18/18 06:53 Gibson % (Auto) 10.2 % (0.0-10.0) H 02/18/18 06:53 Eos % (Auto) 4.0 % (0.0-4.0) 02/18/18 06:53 Baso % (Auto) 0.4 % (0.0-2.0) 02/18/18 06:53 Neut # (Auto) 4.4 K/uL (1.8-7.0) 02/18/18 06:53 Lymph # (Auto) 1.8 K/uL (1.0-4.3) 02/18/18 06:53 Gibson # (Auto) 0.7 K/uL (0.0-0.8) 02/18/18 06:53 Eos # (Auto) 0.3 K/uL (0.0-0.7) 02/18/18 06:53 Baso # (Auto) 0.0 K/uL (0.0-0.2) 02/18/18 06:53 Neutrophils % (Manual) 87 % (50-75) H 02/16/18 12:54 Lymphocytes % (Manual) 10 % (20-40) L 02/16/18 12:54 Monocytes % (Manual) 3 % (0-10) 02/16/18 12:54 Platelet Estimate Normal (NORMAL) 02/16/18 12:54 Sodium 140 mmol/L (132-148) 02/18/18 06:53 Potassium 3.5 mmol/L (3.6-5.2) L 02/18/18 06:53 Chloride 104 mmol/L (98-107) 02/18/18 06:53 Carbon Dioxide 28 mmol/L (22-30) 02/18/18 06:53 Anion Gap 11 (10-20) 02/18/18 06:53 BUN 11 mg/dL (9-20) 02/18/18 06:53 Creatinine 0.8 mg/dL (0.8-1.5) 02/18/18 06:53 Est GFR ( Amer) > 60 02/18/18 06:53 Est GFR (Non-Af Amer) > 60 02/18/18 06:53 POC Glucose (mg/dL) 105 mg/dL (65-110) 02/18/18 02:14 Random Glucose 89 mg/dL (75-110) 02/18/18 06:53 Calcium 8.4 mg/dl (8.6-10.4) L 02/18/18 06:53 Phosphorus 3.5 mg/dL (2.5-4.5) 02/18/18 06:53 Magnesium 2.0 mg/dL (1.6-2.3) 02/18/18 06:53 Total Bilirubin 0.8 mg/dL (0.2-1.3) 02/18/18 06:53 AST 30 U/L (17-59) 02/18/18 06:53 ALT 52 U/L (21-72) 02/18/18 06:53 Alkaline Phosphatase 56 U/L (38-126) 02/18/18 06:53 Total Protein 5.8 g/dL (6.3-8.3) L 02/18/18 06:53 Albumin 3.3 g/dL (3.5-5.0) L 02/18/18 06:53 Globulin 2.4 gm/dL (2.2-3.9) 02/18/18 06:53 Albumin/Globulin Ratio 1.4 (1.0-2.1) 02/18/18 06:53 Lipase 94 U/L (23-300) 02/16/18 12:54 Urine Color [place]elle (YELLOW) 02/16/18 12:54 Urine Clarity Hazy (Clear) 02/16/18 12:54 Urine pH 6.0 (5.0-8.0) 02/16/18 12:54 Ur Specific [place] 1.023 (1.003-1.030) 02/16/18 12:54 Urine Protein 1+ mg/dL (NEGATIVE) H 02/16/18 12:54 Urine Glucose (UA) Normal mg/dL (Normal) 02/16/18 12:54 Urine Ketones Negative mg/dL (NEGATIVE) 02/16/18 12:54 Urine Blood Negative (NEGATIVE) 02/16/18 12:54 Urine Nitrate Negative (NEGATIVE) 02/16/18 12:54 Urine Bilirubin Negative (NEGATIVE) 02/16/18 12:54 Urine Urobilinogen Normal mg/dL (0.2-1.0) 02/16/18 12:54 Ur Leukocyte Esterase Neg Becka/uL (Negative) 02/16/18 12:54 Urine WBC (Auto) 1 /hpf (0-5) 02/16/18 12:54 Urine RBC (Auto) 1 /hpf (0-3) 02/16/18 12:54 Attending/Attestation - Attestation I have personally seen and examined this patient.: Yes I have fully participated in the care of the patient.: Yes I have reviewed all pertinent clinical information, including history, physical exam and plan: Yes Notes (Text): 02/19/18 07:57 Medical attending: Patient was seen and examined by me, agrees the above note by director of graduate medical education. The patient was not in any acute distress when we saw him. Actively walking in the room, he reported that the abdominal pain had greatly improved. He is tolerating his clear liquid diet and we advanced him to a heart healthy diet just to see how you do. And later on he did do well with the advance diet. The patient's white blood cell count decreased for 2 days in a row, he remained afebrile. And he was going to the bathroom normally So at this time will discharge the patient, we explained to him that he needs to continue taking oral Cipro and oral Flagyl Thank you very much, Aiden Narayan
[2018-02-18 16:17] VITALS: BP 111/63; PULSE 65; TEMP 98.8; O2SAT 97
[2018-02-19] MEDS ORDERED: Pneumococcal 23-Valent Vaccine IM ONE (10:00)
== END 2018-02-18 19:01 | disposition home or self-care (01) ==
LOC: C.ER 09:29 → C.9E 16:25 → C.3T 02-17 00:46
PROVIDERS: ADMIT Hospitalist; ATTEND Hospitalist
DX: K52.9 Noninfective gastroenteritis and colitis, unspecified (principal); F17.210 Nicotine dependence, cigarettes, uncomplicated
CPT/HCPCS: 36415; 74177; 80053; 81001; 82948; 83690; 83735; 84100; 85025; 87040; 87086; 96365; 96374; 99285; G0378; J0744; J1885; J2405; J2543; J7042; J7050; Q9966; Q9967